=== PATIENT | female | born 1990 | race Hispanic/Latino ===

== ENCOUNTER → 2022-07-01 | Outpatient (CLI) | payer OTHER | LOC: M RAD 10:40 | PROVIDERS: ATTEND Obstetrics & Gynecology | DX: Z36.4 Encounter for antenatal screening for fetal growth retardation (principal); Z3A.32 32 weeks gestation of pregnancy; Z86.16 Personal history of COVID-19 ==

== ENCOUNTER 2022-07-20 21:16 | Inpatient (IN) | payer OTHER ==
[~2022-07-20] VITALS: Ht 157.5 cm; Wt 100.4 kg
[2022-07-20 21:42] VITALS: BP 119/75
[2022-07-20] MEDS ORDERED: LR 1,000 ML IV SCH (22:40)
[2022-07-20] MEDS ORDERED: OXYTOCIN DRIP 30 UNITS in IV 1 EA IV PRN ×6 (22:40)
[2022-07-20] MEDS ORDERED: TRANEXAMIC ACID INJection 1,000 MG in NS 100 ML IV PRN (22:40)
[2022-07-20] MEDS ORDERED: LIDOCAINE 1% MDV 20ML VIAL INFIL PRN (22:40)
[2022-07-20] MEDS ORDERED: CARBOPROST TROMETHAMINE 250 MCG/ML AMP IM PRN (22:40)
[2022-07-20] MEDS ORDERED: METHYLERGONOVINE MALEATE 0.2MG/ML 1ML VIAL IM PRN (22:40)
[2022-07-20] MEDS ORDERED: OXYTOCIN INJ 10UNITS/ML 1ML VIAL IV PRN (22:40)
[2022-07-20] MEDS ORDERED: ceFAZolin SOD 2 GM in IV 1 EA IV ONE (23:00)
[2022-07-20] MEDS ORDERED: BICITRA 30ML SOLN UDC PO ONE (23:00)
[2022-07-20] MEDS ORDERED: UNRESOLVED CLARIFICATION ENTRY XX STA (23:03)
[2022-07-20] MEDS ORDERED: OXYTOCIN INJ 10UNITS/ML 1ML VIAL As Ordered ONE (23:18)
[2022-07-20] MEDS ORDERED: fentaNYL 100 MCG/2 ML INJECTION As Ordered ONE (23:18)
[2022-07-20] MEDS ORDERED: MORPHINE PRES-FREE INJ 10 MG/10 ML VIAL As Ordered ONE (23:18)
[2022-07-20] MEDS ORDERED: KETOROLAC 60MG 2ML VIAL As Ordered ONE (23:18)
[2022-07-20] MEDS ORDERED: ONDANSETRON 4MG 2ML VIAL As Ordered ONE (23:18)
[2022-07-20 23:20] LABS: HEMATOCRIT 38.7 % (36.0-47.0); HEMOGLOBIN 13.1 g/dl (12.0-15.5); MEAN CORPUSCULAR HEMOGLOBIN 30.7 pg (27.0-33.0); MEAN CORPUSCULAR HGB CONC 33.9 g/dl (32.0-36.5); MEAN CORPUSCULAR VOLUME 90.6 fl (80.0-96.0); PLATELET COUNT, AUTOMATED 227 10^3/uL (150-450); RED BLOOD COUNT 4.27 10^6/uL (4.00-5.40); WHITE BLOOD COUNT 8.1 10^3/uL (4.0-10.0)
[2022-07-20] MEDS ORDERED: AZITHROMYCIN INJ 500 MG, VIAL MATE ADAPTER 1 EACH in NS 250 ML IV ONE (23:30)
[2022-07-20] MEDS ORDERED: PRENTAB9 PO (23:34)
[2022-07-20] MEDS ORDERED: PYRI25TA2 PO (23:35)
[2022-07-20] MEDS ORDERED: UNIS25TA3 PO (23:35)
[2022-07-20] MEDS ORDERED: HOME MED LIST COMPLETE! XX SCH (23:40)
[2022-07-21] VITALS (10 sets, daily range): BP systolic 99–125; BP diastolic 55–70
[2022-07-21] MEDS ORDERED: NALOXONE INJ 0.4MG/1ML VIAL IV PRN ×2 (00:05)
[2022-07-21] MEDS ORDERED: ONDANSETRON 4MG 2ML VIAL IV PRN ×2 (00:05→01:20)
[2022-07-21] MEDS ORDERED: diphenhydrAMINE 50MG/ML VIAL IV PRN (00:05)
[2022-07-21] MEDS: SLF 3 ML SYR IV SCH ×3 (00:05→15:58)
[2022-07-21] MEDS ORDERED: NALBUPHINE HCL 10 MG/ML 1ML AMP IV PRN (00:05)
[2022-07-21] MEDS ORDERED: **NOTE PATIENT COMMENT** MISC XX SCH (00:05)
[2022-07-21] MEDS ORDERED: PHENYLephrine 500MCG 5ML (100MCG/ML) SYRINGE As Ordered ONE (00:31)
[2022-07-21] MEDS ORDERED: MOM 30ML SUSPENSION UDC PO PRN (01:20)
[2022-07-21] MEDS ORDERED: RHOGAM 300MCG (1500IU) INJ IM SCH (01:20)
[2022-07-21] MEDS ORDERED: OXYTOCIN DRIP 30 UNITS in IV 1 EA IV SCH ×4 (01:20)
[2022-07-21] MEDS ORDERED: ACETAMINOPHEN TAB 650MG DOSE (2X325MG) PO PRN (01:20)
[2022-07-21] MEDS: LR 1,000 ML IV SCH ×3 (01:39→16:24)
[2022-07-21] MEDS ORDERED: OXYTOCIN 30UNITS IN 0.9% NaCl 500ML IV BAG As Ordered ONE (01:41)
[2022-07-21] MEDS: METOCLOPRAMIDE INJ 10MG/2ML VIAL IV PRN ×2 (03:46→10:50)
[2022-07-21] MEDS ORDERED: KETOROLAC 30 MG/ML 1ML VIAL IV SCH (05:00)
[2022-07-21 07:28] LABS: HEMOGLOBIN 11.8 g/dl (12.0-15.5); MEAN CORPUSCULAR HEMOGLOBIN 31.1 pg (27.0-33.0); MEAN CORPUSCULAR HGB CONC 33.7 g/dl (32.0-36.5); MEAN CORPUSCULAR VOLUME 92.1 fl (80.0-96.0); PLATELET COUNT, AUTOMATED 194 10^3/uL (150-450); WHITE BLOOD COUNT 14.2 10^3/uL (4.0-10.0)
[2022-07-21] MEDS: KETOROLAC 30 MG/ML 1ML VIAL IV SCH ×3 (07:49→18:15)
[2022-07-21] MEDS: PRENATAL VITAMINS CHEWABLE TABLET PO SCH (08:13)
[2022-07-21] MEDS: DOCUSATE SODIUM 100MG CAPSULE PO SCH ×2 (08:13→21:31)
[2022-07-21] MEDS ORDERED: LR 500 ML IV ONE (10:40)
[2022-07-21] MEDS ORDERED: LR 1,000 ML IV ONE (14:40)
[2022-07-21] MEDS: METHYLERGONOVINE MALEATE 0.2 MG TAB PO PRN ×2 (15:17→19:33)
[2022-07-21 16:22] LABS: HEMATOCRIT 30.3 % (36.0-47.0); HEMOGLOBIN 10.3 g/dl (12.0-15.5); MEAN CORPUSCULAR HEMOGLOBIN 31.3 pg (27.0-33.0); MEAN CORPUSCULAR VOLUME 92.1 fl (80.0-96.0); PLATELET COUNT, AUTOMATED 173 10^3/uL (150-450); RED BLOOD COUNT 3.29 10^6/uL (4.00-5.40); WHITE BLOOD COUNT 11.6 10^3/uL (4.0-10.0)
[2022-07-22] MEDS ORDERED: IBUPROFEN 800 MG TAB PO SCH (01:00)
[2022-07-22] MEDS: METHYLERGONOVINE MALEATE 0.2 MG TAB PO SCH ×2 (01:04→07:28)
[2022-07-22] MEDS: ACETAMINOPHEN 500 MG TAB PO PRN ×3 (01:04→20:41)
[2022-07-22 02:10] VITALS: BP 108/57
[2022-07-22] MEDS: IBUPROFEN 800 MG TAB PO SCH ×3 (02:30→18:05)
[2022-07-22] MEDS: SIMETHICONE 80MG CHEW TAB PO PRN ×3 (05:20→18:43)
[2022-07-22 05:35] VITALS: BP 96/58
[2022-07-22] MEDS: PRENATAL VITAMINS CHEWABLE TABLET PO SCH (07:28)
[2022-07-22] MEDS: DOCUSATE SODIUM 100MG CAPSULE PO SCH ×2 (07:28→20:40)
[2022-07-22 10:00] VITALS: BP 100/61
[2022-07-22 14:45] VITALS: BP 114/65
[2022-07-22 18:00] VITALS: BP 115/64
[2022-07-22] MEDS: MIRALAX *UNIT DOSE* 17GM PACKET PO PRN (18:58)
[2022-07-22 22:00] VITALS: BP 106/68
[2022-07-23] MEDS: IBUPROFEN 800 MG TAB PO SCH ×2 (03:52→11:18)
[2022-07-23 06:00] VITALS: BP 104/70
[2022-07-23] MEDS: PRENATAL VITAMINS CHEWABLE TABLET PO SCH (08:21)
[2022-07-23] MEDS: DOCUSATE SODIUM 100MG CAPSULE PO SCH (08:21)
[2022-07-23] MEDS: SIMETHICONE 80MG CHEW TAB PO PRN (08:22)
[2022-07-23] MEDS: ACETAMINOPHEN 500 MG TAB PO PRN (08:22)
[2022-07-23] MEDS: MIRALAX *UNIT DOSE* 17GM PACKET PO PRN (08:23)
[2022-07-23] MEDS ORDERED: MEASLES,MUMPS,RUBELLA VACCINE INJ (MMR-II) SC.IMMUN ONE (09:00)
[2022-07-23 10:00] VITALS: BP 112/68
== END 2022-07-23 11:00 | disposition home or self-care (01) | DRG 785 ==
LOC: M LDO 21:16 → M LDI 22:35 → M OBS 07-21 02:55
PROVIDERS: ADMIT Obstetrics & Gynecology; ATTEND Obstetrics & Gynecology
PROC: 0UB70ZZ Excision of Bilateral Fallopian Tubes, Open Approach (ICD-10-PCS; 2022-07-20)
PROC: 10D00Z1 Extraction of Products of Conception, Low, Open Approach (ICD-10-PCS; principal; 2022-07-20 23:17)
DX: O42.02 Full-term premature rupture of membranes, onset of labor within 24 hours of rupture (principal); Z3A.38 38 weeks gestation of pregnancy; O09.293 Supervision of pregnancy with other poor reproductive or obstetric history, third trimester; Z37.0 Single live birth; Z30.2 Encounter for sterilization; O75.89 Other specified complications of labor and delivery